=== PATIENT | male | born 1965 | race Caucasian/White ===

== ENCOUNTER 2017-06-30 09:30 | Day surgery (SDC) | payer BC ==
[~2017-06-30] VITALS: Ht 175.3 cm; Wt 71.0 kg
[~2017-06-30 09:30] MED LIST: ATORVASTATIN CA40 MG PO; CARDIZEM CD,CA180 MG PO; FLECAINIDE ACET50 MG PO; JANUMET 50/11 TABLET PO; XARELTO20 MG PO
[2017-06-30 10:15] LABS: POINT-OF-CARE METER ID UU13113696
== END 2017-06-30 11:00 | disposition home or self-care (01) ==
LOC: CATH 09:30
PROVIDERS: Internal Medicine Cardiovascular Disease
PROC: 5A2204Z Restoration of Cardiac Rhythm, Single (ICD-10-PCS; principal; 2017-06-30)
DX: I48.1 Persistent atrial fibrillation (principal); I42.9 Cardiomyopathy, unspecified; E11.65 Type 2 diabetes mellitus with hyperglycemia; E78.4 Other hyperlipidemia; Z87.891 Personal history of nicotine dependence; Z79.84 Long term (current) use of oral hypoglycemic drugs
CPT/HCPCS: 82948; 93005

== ENCOUNTER 2017-07-24 08:59 | Day surgery (SDC) | payer BC ==
[~2017-07-24] VITALS: Ht 175.3 cm; Wt 71.0 kg
[~2017-07-24 08:59] MED LIST changes: +AMIODARONE HCL400 MG PO
[2017-07-24 09:49] LABS: POINT-OF-CARE METER ID UU13113696
[2017-07-24 10:43] LABS: POINT-OF-CARE METER ID UU13113819
== END 2017-07-24 11:33 | disposition home or self-care (01) ==
LOC: CATH 08:59
PROVIDERS: Internal Medicine Cardiovascular Disease
PROC: 5A2204Z Restoration of Cardiac Rhythm, Single (ICD-10-PCS; principal; 2017-07-24)
DX: I48.1 Persistent atrial fibrillation (principal); I42.9 Cardiomyopathy, unspecified; E11.65 Type 2 diabetes mellitus with hyperglycemia; I10 Essential (primary) hypertension; E78.4 Other hyperlipidemia; Z79.01 Long term (current) use of anticoagulants; Z87.891 Personal history of nicotine dependence; Z82.49 Family history of ischemic heart disease and other diseases of the circulatory system; Z79.84 Long term (current) use of oral hypoglycemic drugs
CPT/HCPCS: 82948; 93005

== ENCOUNTER 2018-02-06 08:54 | Day surgery (SDC) | payer BC ==
[~2018-02-06] VITALS: Ht 175.3 cm; Wt 74.8 kg
[~2018-02-06 08:54] MED LIST changes: +NOVOLOG PE100 UNITS/ SC
== END 2018-02-06 11:17 | disposition home or self-care (01) ==
LOC: CATH 08:54
PROVIDERS: Internal Medicine Cardiovascular Disease
PROC: 5A2204Z Restoration of Cardiac Rhythm, Single (ICD-10-PCS; principal; 2018-02-06)
DX: I48.1 Persistent atrial fibrillation (principal); I42.9 Cardiomyopathy, unspecified; I10 Essential (primary) hypertension; E11.65 Type 2 diabetes mellitus with hyperglycemia; E78.4 Other hyperlipidemia; Z79.01 Long term (current) use of anticoagulants; Z79.4 Long term (current) use of insulin; Z87.891 Personal history of nicotine dependence
CPT/HCPCS: 82948; 93005; J0330; J2250